=== PATIENT | male | born 1965 | race Caucasian/White ===

== ENCOUNTER 2017-09-22 08:55 | Emergency (ER) | payer SELFPAY ==
[2017-09-22 09:10] VITALS: BP 112/83; TEMP 98; O2SAT 99
--- NOTE | 2017-09-22 09:45 | RAD ---
EXAM DESCRIPTION: Shoulder,Left 2 or More Views CLINICAL HISTORY: 51 years Male, 4 mo left hsoulder pain, limited abduction COMPARISON: None available. FINDINGS: The visualized bones are well-mineralized.No acute fracture or dislocation. The soft tissues appear grossly unremarkable. IMPRESSION: Grossly normal radiographs of the left shoulder. Electronically signed by: Karen Carreon MD 09/22/2017 9:44 AM CDT
--- NOTE | 2017-09-22 09:51 | ED.PDOC ---
History of Present Illness - General Chief Complaint: Upper Extremity Injury Time Seen by Provider: 09/22/17 09:01 Source: patient Exam Limitations: no limitations - History of Present Illness Initial Comments: the patient is a 51-year-old male presenting to the emergency room secondary to 4 months of left shoulder pain that has been progressive. He has a limitation in abduction of the left shoulder. No sensory changes but occasionally does get some shooting pain down his arm when the pain is at its worst. He does have mild limitations in extreme extension of the shoulder as well as extreme flexion. It is primarily abduction that is his problem. He reports that 4 months ago he was doing something and felt a pop. He did not fall on it. There was no bruising at the time. No deformity of time. There is no deformity currently. Passive range of motion is largely preserved though he does get some pain with even passive maximum flexion and abduction. strength and range of motion are preserved at the elbow and wrist and hand. Occurred: other Pain - Upper Extremity: severe: Shoulder, left Improving Factors: immobilization Worsening Factors: movement Allergies/Adverse Reactions: Allergies NO KNOWN ALLERGY Allergy (Verified 09/22/17 09:10) Home Medications: Ambulatory Orders Cyclobenzaprine HCl [Flexeril] 5 mg PO TID PRN #30 tab 09/22/17 Tramadol HCl 50 mg PO Q6HR PRN #30 tab 09/22/17 predniSONE [Prednisone] 20 mg PO DAILY #5 tab 09/22/17 Review of Systems - Review of Systems Constitutional: States: no symptoms reported EENTM: States: no symptoms reported Respiratory: States: no symptoms reported Cardiology: States: no symptoms reported Gastrointestinal/Abdominal: States: no symptoms reported Genitourinary: States: no symptoms reported Musculoskeletal: States: see HPI Skin: States: no symptoms reported Neurological: States: no symptoms reported Endocrine: States: no symptoms reported All other Systems: No Change from Baseline Past Medical History (General) - Patient Medical History Hx Stroke: No Hx Congestive Heart Failure: No Hx Diabetes: No Family Medical History - Family History Father Family History: Unknown Physical Exam - Physical Exam General Appearance: Alert, Comfortable, No apparent distress Eyes, Ears, Nose, Throat Exam: normal ENT inspection Neck: full range of motion, supple Cardiovascular/Respiratory: normal breath sounds, no respiratory distress, other - regular rate Abdominal Exam: non-tender Back Exam: normal inspection Shoulder Exam: soft tissue tenderness, swelling - mild. See history of present illness. Elbow/Forearm Exam: normal inspection, non-tender, no evidence of injury, normal ROM Wrist Exam: normal inspection, non-tender, no evidence of injury, normal ROM Hand Exam: normal inspection, non-tender, no evidence of injury, normal ROM Neuro/Tendon: normal sensation, normal tendon functions, responds to pain Mental Status: alert, oriented x 3 Skin Exam: normal color Comments: Vital Signs - 24 hr 09/22/17 09/22/17 09:05 09:08 Temperature 98.0 F Pulse Rate [ 92 H right brachial] Respiratory 16 16 Rate Blood Pressure 112/83 [right brachial ] O2 Sat by Pulse 99 Oximetry Progress - Progress Progress: 09/22/17 09:52 the patient is a 51-year-old male presenting to the emergency room after 4 months of left shoulder pain with significant difficulty with abduction of the left shoulder. X-ray shows no evidence of any bony deformity or dislocation. I do suspect a significant rotator cuff injury. The patient is going to be placed on prednisone 20 mg daily for the next week. Additionally he will be written for Flexeril as a muscle relaxer and tramadol as a pain medication. He needs to get set up with orthopedics for evaluation of his rotator cuff to see if repair is going to be required. He can start doing range of motion exercises as directed. Topical heat may help reduce discomfort little bit. ER warnings were given. He is neurovascularly intact at this time. Departure - Departure Clinical Impression: Injury of left rotator cuff Qualifiers: Encounter type: initial encounter Qualified Code(s): S46.002A - Unspecified injury of muscle(s) and tendon(s) of the rotator cuff of left shoulder, initial encounter Disposition: Discharge to Home or Self Care Condition: Fair Departure Forms: ED Discharge - Pt. Copy, Patient Portal Self Enrollment Diet: regular diet Activity: increase activity as tolerated Prescriptions: Tramadol HCl 50 mg PO Q6HR PRN #30 tab PRN Reason: Moderate Pain Cyclobenzaprine HCl [Flexeril] 5 mg PO TID PRN #30 tab PRN Reason: Muscle Spasms predniSONE [Prednisone] 20 mg PO DAILY #5 tab Home Medications: Ambulatory Orders Cyclobenzaprine HCl [Flexeril] 5 mg PO TID PRN #30 tab 09/22/17 Tramadol HCl 50 mg PO Q6HR PRN #30 tab 09/22/17 predniSONE [Prednisone] 20 mg PO DAILY #5 tab 09/22/17 Additional Instructions: the patient is a 51-year-old male presenting to the emergency room after 4 months of left shoulder pain with significant difficulty with abduction of the left shoulder. X-ray shows no evidence of any bony deformity or dislocation. I do suspect a significant rotator cuff injury. The patient is going to be placed on prednisone 20 mg daily for the next week. Additionally he will be written for Flexeril as a muscle relaxer and tramadol as a pain medication. He needs to get set up with orthopedics for evaluation of his rotator cuff to see if repair is going to be required. He can start doing range of motion exercises as directed. Topical heat may help reduce discomfort little bit. ER warnings were given. He is neurovascularly intact at this time.
== END 2017-09-22 10:06 | disposition home or self-care (01) ==
LOC: ER 08:55
DX: S46.002A Unspecified injury of muscle(s) and tendon(s) of the rotator cuff of left shoulder, initial encounter (principal); X58.XXXA Exposure to other specified factors, initial encounter; Y92.9 Unspecified place or not applicable